=== PATIENT | female | born 1955 | race Caucasian/White ===

== ENCOUNTER → 2016-09-24 | Outpatient (CLI) | payer MEDICARE ==
--- NOTE | 2016-09-24 09:44 | MM ---
Reason for exam: clinical finding. Last mammogram was performed 1 year ago. History: Patient is postmenopausal. Family history of breast cancer in 2 maternal aunts. Left US Cyst Aspiration of the left breast, April 26, 2007. Took hormonal contraceptives for 12 years. Indicated problem(s): pain in both breasts. Physical Findings: Nurse did not find any significant physical abnormalities on exam. MG 3D Diag Mammo W/Cad KAYE Bilateral CC and MLO view(s) were taken. Prior study comparison: September 12, 2015, bilateral MG 3d screening mammo w/cad. July 07, 2013, bilateral MG screening mammo w CAD. There are scattered fibroglandular densities. There is no discrete abnormality. No significant new findings when compared with previous films. These results were verbally communicated with the patient and result sheet given to the patient on 09/24/16. ASSESSMENT: Negative, BI-RAD 1 RECOMMENDATION: Routine screening mammogram of both breasts in 1 year.
== END | disposition home or self-care (01) ==
LOC: RADMAMWWP 08:48
PROVIDERS: ATTEND Family Medicine
DX: N64.4 Mastodynia (principal)
CPT/HCPCS: G0204; G0279

== ENCOUNTER → 2016-10-01 | Outpatient (CLI) | payer MEDICARE ==
--- NOTE | 2016-10-01 09:40 | MR ---
EXAMINATION TYPE: MR lspine/sacrum wo/w con DATE OF EXAM: 10/01/2016 COMPARISON: NONE HISTORY: lumbago TECHNIQUE: Multiplanar, multisequence images of the lumbar spine is performed without and with IV contrast, util izing 9.5 mL intravenous Gadavist FINDINGS: At T12-L1 there is no disc herniation or canal stenosis. No foraminal encroachment. L1-L2 there is no disc herniation or canal stenosis. No foraminal encroachment. At L2-L3 there is no disc herniation or canal stenosis. There is hypertrophic change of the facets an d ligamentum flavum. Neural foramina patent. At L3-L4 there is broad-based central disc bulging and hypertrophic change of the facets and ligament um flavum with borderline canal stenosis. Neural foramina remain patent. At L4-L5 there is a grade 1 anterolisthesis with severe facet arthropathy. Results in moderate canal stenosis with pseudodisc posteriorly. There is moderate bilateral foraminal encroachment. There is a fluid signal adjacent to the facet joint posteriorly within the soft tissues measuring 1.4 cm suggest sylvia of a synovial cyst. There is severe facet arthropathy at L5-S1 with grade 1 anterolisthesis. Broad-based disc bulging is seen with borderline to mild canal stenosis. Moderate bilateral foraminal encroachment. SACRUM: SI joints are preserved with no evidence of erosive change. Bone marrow signal is maintained. Scalloping along the posterior margin of the S2 vertebral segment is likely related to dural ectasia . Incidental note of a probable uterine fibroid measuring approximately 1.7 cm. Nabothian cysts noted. IMPRESSION: 1. Multilevel degenerative disc disease and severe facet arthropathy with grade 1 anterolisthesis L4- L5 and L5-S1 with moderate bilateral foraminal encroachment at both levels. Canal stenosis at both le vels. 2. No evidence of sacroiliitis. 3. 1.7 cm uterine fibroid. 4. Broad-based disc bulging L3-L4 with moderate effacement of thecal sac and borderline to mild canal stenosis.
== END | disposition home or self-care (01) ==
LOC: RADMRIMAIN 07:51
PROVIDERS: ATTEND Nurse Practitioner Women's Health
DX: M48.07 Spinal stenosis, lumbosacral region (principal); M51.17 Intervertebral disc disorders with radiculopathy, lumbosacral region; M12.88 Other specific arthropathies, not elsewhere classified, other specified site; M43.17 Spondylolisthesis, lumbosacral region
CPT/HCPCS: 72158; 72197; A9581

== ENCOUNTER → 2016-10-11 | Outpatient (CLI) | payer MEDICARE ==
--- NOTE | 2016-10-11 09:18 | MR ---
EXAMINATION TYPE: MR thoracic spine wo/w con DATE OF EXAM: 10/11/2016 COMPARISON: CTA chest October 06, 2015. HISTORY: Pain in thoracic spine(M54.4 and M 54.6 per order). Back pain for over 4 years per patient. TECHNIQUE: Multiplanar, multisequence imaging of thoracic spine is performed without and with IV cont rast, patient is injected with 10 cc of Gadavist for this exam. FINDINGS: Spinal cord shows normal course, caliber, and signal as it courses the thoracic spine. Tramaine tebral body heights and alignment are satisfactory. Disc space heights are maintained. No large post erior disc herniations are seen on sagittal images. There is mild multilevel anterior spurring. There are small hemangioma at T6 vertebral body level on sagittal image 9. No abnormal postcontrast enhanc ement is seen. Review of the axial images shows no significant spinal canal stenosis or neural foraminal narrowing a t any thoracic level. No significant disc herniation is seen. No suspicious postcontrast enhancement is present. There is suspected 1.1 cm left adrenal nodule, nonspecific finding axial image 6 series 6 01. This left adrenal nodule is roughly stable from CT study one year earlier favored benign. IMPRESSION: No significant abnormality is seen to account for patient's symptoms.
== END ==
LOC: RADMRIMAIN 07:57
PROVIDERS: ATTEND Nurse Practitioner Women's Health
DX: M54.6 Pain in thoracic spine (principal)
CPT/HCPCS: 72157; A9581

== ENCOUNTER → 2018-11-25 | Outpatient (CLI) | payer MEDICARE ==
--- NOTE | 2018-11-25 12:43 | BD ---
EXAMINATION TYPE: Axial Bone Density DATE OF EXAM: 11/25/2018 COMPARISON: NONE CLINICAL HISTORY: 62 YR OLD FEMALE....ICD-10 CODE: Z78.0 POST MENOPAUSAL Height: 65 Weight: 207 FRAX RISK QUESTIONS: Current Tobacco Use: YES RISK FACTORS HISTORY OF: NO FXs IN BODY SINCE AGE OF 52, PRIOR, ONLY TOES AND "CHIPPED KNEECAP" Family History of Osteoporosis: NONE AWARE OF Postmenopausal woman: YES ABOUT AGE 50 TRAMATIC ONSET MENOPAUSE Hyperparathyroidism: NO Adrenal Insufficiency: NO MEDICATIONS: Additional Medications: BP MEDS, XANAX IN PAST FOR LONG TIME, REFLUX MED. SUPER MULTIVITAMIN Additional History: NOTHING ADDITIONAL TO ADD HERE EXAM MEASUREMENTS: Bone mineral densitometry was performed using the Fitzeal System. Bone mineral density as measured about the Lumbar spine is: ----- L1-L4(G/cm2): 1.387 T Score Values are as follows: ----- L1: 0.1 ----- L2: -0.1 ----- L3: 2.3 ----- L4: 4.5 ----- L1-L4: 1.7 Bone mineral density FIRST DEXA STUDY.....BASELINE STUDY Bone mineral density about the R hip (g/cm2): 1.044 Bone mineral density about the L hip (g/cm2): 0.989 T Score values are as follows: -----R Neck: -0.1 -----L Neck: -0.4 -----R Total: 0.3 -----L Total: -0.1 Bone mineral density FIRST DEXA SCAN......BASELINE STUDY FRAX%s: THERE IS A 6.0% CHANCE FOR A MAJOR OSTEOPOROTIC FX AND A 0.3% FOR HIP.....PROBABILITY FOR F X IN 10 YRS TIME IMPRESSION: Normal (Values between +1 and -1 indicate normal bone mass). Consider repeating this study in 5 year s or sooner if there is some new clinical indication. NOTE: T-SCORE=SD OF THE YOUNG ADULT MEAN.
--- NOTE | 2018-11-26 12:09 | MM ---
Reason for exam: screening (asymptomatic). Last mammogram was performed 2 years and 2 months ago. History: Patient is postmenopausal. Family history of breast cancer in 2 maternal aunts. Left US Cyst Aspiration of the left breast, April 26, 2007. Took hormonal contraceptives for 12 years. Physical Findings: A clinical breast exam by your physician is recommended on an annual basis and results should be correlated with mammographic findings. MG 3D Screening Mammo W/Cad Bilateral CC and MLO view(s) were taken. Prior study comparison: September 24, 2016, bilateral MG 3d diag mammo w/cad KAYE. September 12, 2015, bilateral MG 3d screening mammo w/cad. There are scattered fibroglandular densities. No suspicious abnormality. No significant changes when compared with prior studies. ASSESSMENT: Negative, BI-RAD 1 RECOMMENDATION: Routine screening mammogram of both breasts in 1 year.
== END | disposition home or self-care (01) ==
LOC: RADMAMWWP 10:51
PROVIDERS: ATTEND Family Medicine
DX: Z12.31 Encounter for screening mammogram for malignant neoplasm of breast (principal); Z78.0 Asymptomatic menopausal state
CPT/HCPCS: 77063; 77067; 77080

== ENCOUNTER 2021-03-29 08:53 | Day surgery (SDC) | payer MEDICARE ==
[2021-03-27 13:33] VITALS: BMI 33.0
--- NOTE | 2021-03-29 07:04 | P.GSHP ---
History of Present Illness H&P Date: 03/29/21 CHIEF COMPLAINT: Cholecystitis HISTORY OF PRESENT ILLNESS: The patient is a 65-year-old female who presents with history of epigastric including right upper quadrant abdominal pain for over 3 months. She underwent diagnostic studies for her gallbladder. Separately her clinical picture was consistent with cholecystitis. Now she presents for surgical intervention. PAST MEDICAL HISTORY: Please see list PAST SURGICAL HISTORY: Please see list MEDICATIONS: Please see list ALLERGIES: Please see list SOCIAL HISTORY: Please see list FAMILY HISTORY: Please see list REVIEW OF ORGAN SYSTEMS: CONSTITUTIONAL: No reports of fevers or chills. HEENT: Denies any troubles with the vision or hearing. ENDOCRINE: No reports of hypothyroidism. No diabetes. RESPIRATORY: No recent pneumonias. CARDIOVASCULAR: Denies chest pain or palpitations. Has hypertensive heart disease. GI: No blood in stools or constipation. MUSCULOSKELETAL: Has occasional joint pain including back pain. NEURO: No seizure disorders or headaches. No recent stroke. PSYCH: No depression or suicidal ideation. GENITOURINARY: No active blood in urine. No urinary hesitancy. HEMATOLOGIC: No personal or family history of DVTs or pulmonary emboli. SKIN: No skin cancer. PHYSICAL EXAM: VITAL SIGNS: Afebrile vital signs stable GENERAL: Well-developed pleasant in no acute distress. HEENT: No scleral icterus. Extraocular movements grossly intact. Moist buccal mucosa. NECK: Supple without lymphadenopathy. CHEST: Unlabored respirations. Equal bilateral excursions. CARDIOVASCULAR: Regular rate regular rhythm rhythm. Distal 2+ pulses. ABDOMEN: Soft, nondistended. Tender along the epigastrium and right upper quadrant. MUSCULOSKELETAL: No clubbing, cyanosis, or edema. NEURO: Cranial nerves II to XII within normal limits. No focal or lateralizing signs. PSYCH: Alert and oriented to person, place and time. SKIN: Well-perfused good skin turgor. ASSESSMENT: 1. Epigastric and right upper quadrant abdominal pain 2. Chronic cholecystitis 3. Symptomatic gallstones. 4. Hypertensive heart disease. PLAN: 1. Will need a robotic cholecystectomy possible open. Benefits and risks were described. 2. Heparin for DVT prophylaxis 5000 units. 3. Antibiotic prophylaxis. Past Medical History Past Medical History: Deep Vein Thrombosis (DVT), Hyperlipidemia, Hypertension Additional Past Medical History / Comment(s): Hx "several DVT's, have small blood vessels." "AV heart block, leaky heart valves/regurgitation, born with hole in heart". Neuropathy in legs and hands. History of Any Multi-Drug Resistant Organisms: None Reported Past Surgical History: Orthopedic Surgery, Tubal Ligation Additional Past Surgical History / Comment(s): Thrombectomy left leg, left foot surgery. Past Anesthesia/Blood Transfusion Reactions: Previous Problems w/ Anesthesia Additional Past Anesthesia/Blood Transfusion Reaction / Comment(s): "Started to wake up during surgery on leg and I pulled IV out". Past Psychological History: Anxiety Smoking Status: Current every day smoker Past Alcohol Use History: None Reported Additional Past Alcohol Use History / Comment(s): Has been smoking for 50 yrs, 1/2 ppd. Past Drug Use History: None Reported - Past Family History Father Family Medical History: Cancer Additional Family Medical History / Comment(s): Brain cancer. Son(s) Family Medical History: Deep Vein Thrombosis (DVT), Pulmonary Embolus Additional Family Medical History / Comment(s): at 19 yrs of age. Sister(s) Family Medical History: Deep Vein Thrombosis (DVT), Pulmonary Embolus Brother(s) Family Medical History: Deep Vein Thrombosis (DVT), Pulmonary Embolus Medications and Allergies Home Medications Medication Instructions Recorded Confirmed Type ALPRAZolam [Xanax] 0.25 mg PO ONCE 10/06/15 03/27/21 History Cholecalciferol [Vitamin D3] 2,000 unit PO DAILY 10/06/15 03/27/21 History Multivitamin/Iron/Folic Acid 1 each PO DAILY 10/06/15 03/27/21 History [Centrum Complete Multivit Tab] atenoloL 100 mg PO QAM 10/06/15 03/27/21 History hydrALAZINE HCL 50 mg PO QAM 03/27/21 03/27/21 History hydroCHLOROthiazide 25 mg PO QAM 03/27/21 03/27/21 History Allergies Allergy/AdvReac Type Severity Reaction Status Date / Time No Known Allergies Allergy Verified 03/27/21 13:13
[~2021-03-29 08:53] MED LIST: ACETAMINOPHEN TAB 500 MG TAB PO PRN; DEXAMETHASONE SOD PHOSPHATE 4 MG/ML 1 ML VIAL IV ONE; GABAPENTIN 300 MG CAP PO PRN; HEPARIN SODIUM,PORCINE/PF 5,000 UNIT/0.5 ML SYRINGE SQ PRN; HYDROmorphone 0.5 MG/0.5 ML SYRINGE IVP PRN; INDOCYANINE GREEN 25 MG VIAL IV PRN; LACTATED RINGERS 1,000 ML IV SCH; MELOXICAM 7.5 MG TAB PO SCH; MIDAZOLAM 2 MG/2 ML VIAL IV PRN; ONDANSETRON 4 MG/2 ML VIAL IVP ONE; SCOPOLAMINE 1.5MG/72HR PATCH TRANSDERM ONE; SCOPOLAMINE 1.5MG/72HR PATCH TRANSDERM PRN
[2021-03-29 10:10] LABS: Basophils # (A) 0.1 k/uL (0-0.2); Basophils % (A) 1 %; Eosinophils # (A) 0.3 k/uL (0-0.7); Eosinophils % (A) 3 %; HCT 41.8 % (34.0-46.0); HGB 14.3 gm/dL (11.4-16.0); Lymphocytes # (A) 2.9 k/uL (1.0-4.8); Lymphocytes % (A) 32 %; MCH 33.4 pg (25.0-35.0); MCHC 34.3 g/dL (31.0-37.0); MCV 97.4 fL (80.0-100.0); Monocytes # (A) 0.5 k/uL (0-1.0); Monocytes % (A) 6 %; Neutrophils # (A) 5.1 k/uL (1.3-7.7); Neutrophils % (A) 56 %; Platelet Count 269 k/uL (150-450); RBC 4.29 m/uL (3.80-5.40); RDW 11.6 % (11.5-15.5); WBC 9.2 k/uL (3.8-10.6)
[2021-03-29 10:28] LABS: ALT 18 U/L (4-34); AST 28 U/L (14-36); African American GFR (CKD) >90 (>60 ml/min/1.73 sqM); Albumin 3.4 g/dL (3.5-5.0); Alkaline Phosphatase 53 U/L (38-126); Anion Gap 4 mmol/L; Blood Urea Nitrogen 13 mg/dL (7-17); Calcium 8.9 mg/dL (8.4-10.2); Carbon Dioxide 28 mmol/L (22-30); Chloride 105 mmol/L (98-107); Glucose 100 mg/dL (74-99); Non-African American GFR(CKD) 85 (>60 ml/min/1.73 sqM); Potassium 3.4 mmol/L (3.5-5.1); Sodium 137 mmol/L (137-145); Total Protein 6.1 g/dL (6.3-8.2)
--- NOTE | 2021-03-29 10:30 | P.HPADDEND ---
H&P Addendum H&P Addendum Date: 03/29/21 Patient reports recent gallbladder attack was seen 2 days ago. We'll proceed with cholecystectomy due to cholecystitis.
[2021-03-29] MEDS ORDERED: GLYCOPYRROLATE 0.2 MG/ML 2 ML VIAL ONE (10:35)
[2021-03-29] MEDS ORDERED: LIDOCAINE 1% INJ 10MG/ML (20 ML MDV) ONE (10:35)
[2021-03-29] MEDS ORDERED: NEOSTIGMINE 1 MG/ML 10 ML VIAL ONE (10:35)
[2021-03-29] MEDS ORDERED: MIDAZOLAM 2 MG/2 ML VIAL ONE (10:35)
[2021-03-29] MEDS ORDERED: ROCURONIUM 10 MG/ML (5 ML VIAL) IV ONE (10:35)
[2021-03-29] MEDS ORDERED: HYDROmorphone (PF) 1 MG/ML ONE (10:35)
[2021-03-29] MEDS ORDERED: PROPOFOL 10 MG/ML 20 ML VIAL IV ONE (10:35)
[2021-03-29] MEDS ORDERED: fentaNYL (PF) 50 MCG/ML 2 ML AMP ONE (10:35)
[2021-03-29] MEDS ORDERED: ePHEDrine 50 MG/ML 1 ML VIAL ONE (10:35)
[2021-03-29] MEDS ORDERED: SUCCINYLCHOLINE CHLORIDE 100 MG/5 ML SYR IV ONE (10:35)
[2021-03-29] MEDS ORDERED: BUPIVACAIN-EPI 0.25%-1:200,000 30 ML VIAL SQ ONE (11:08)
[2021-03-29] MEDS ORDERED: LACTATED RINGERS 1,000 ML IV ONE (11:54)
[2021-03-29 12:58] VITALS: TEMP 97.7
[2021-03-29 13:05] VITALS: RESP 16
--- NOTE | 2021-03-29 13:08 | P.OP ---
Date of Procedure: 03/29/21 Description of Procedure: SURGEON: SYL VILLASEÑOR MD PREOPERATIVE DIAGNOSES: 1. Chronic cholecystitis 2. Symptomatic gallstones 3. Hypertensive heart disease 4. Obesity due to excess calories, BMI 30.2. 5. Anxiety disorder 6. Hyperlipidemia 7. Tobacco abuse disorder POSTOPERATIVE DIAGNOSES: 1. Chronic cholecystitis 2. Symptomatic gallstones 3. Hypertensive heart disease 4. Obesity due to excess calories, BMI 30.2. 5. Anxiety disorder 6. Hyperlipidemia 7. Tobacco abuse disorder 8. Severe peritoneal adhesions, right upper quadrant OPERATION: 1. Robotic-assisted da Shannon Xi laparoscopic lysis of adhesions over 1 hour 2. Robotic-assisted da Shannon Xi laparoscopic cholecystectomy, multiport with FIREFLY ESTIMATED BLOOD LOSS: 10 mL. SPECIMENS REMOVED: Gallbladder. COMPLICATIONS: None. OPERATIVE FINDINGS: 1. Severe gallbladder adhesions to liver and common bile duct 2. Dilated common bile duct per indocyanine green INDICATIONS: The patient is a 65-year-old female who presents with epigastric right upper quadrant pain, symptomatic gallstones. Surgical intervention with cholecystectomy was described. Robotic assisted laparoscopic approach was described. Benefits and risks of the procedure including but not limited to bleeding, infection, injury to the biliary tree was reviewed. Informed consent was obtained. DESCRIPTION OF PROCEDURE: Patient was brought to the operating room, placed in supine position. After general induction, the abdomen had been prepped and draped in standard sterile fashion. The robotic da Shannon XI system was primed. After a timeout protocol was performed, the patient had been prepped and draped in standard sterile fashion. The patient was injected with indocyanine green. A 5 mm 0 degrees laparoscopic trocar entry was performed along the left upper quadrant. The abdomen insufflated to 15 mmHg pressure which was tolerated well. Diagnostic laparoscopy demonstrated no injury to bowel viscera or mesentery. No evidence of fatty liver disease was identified however extremely scarred and contracted gallbladder was identified. Next, two 8 mm robotic ports were placed along the right upper abdomen. The camera 8-mm port was maintained along the epigastrium. Another 8 mm port was placed along the left upper abdominal wall after exchanging the 5 mm port. Please note that the ports were placed at least 10 to 15 cm away from the target anatomy of the gallbladder. The robot was docked along the left lateral abdomen. The patient was repositioned in reverse Trendelenburg position with the right side up. Using a grasper for arm 3, a grasper for arm 4, including hook cautery for arm 1, the robotic system was docked and primed as described. Instruments were interchanged by the medical assistant secretary including hook cautery, Bovie cautery and clip appliers. I had sat at the console. The gallbladder was reflected towards the dome of the liver. The cystic structures including the common bile duct were completely scarred together. The common bile that was dilated. The entire gallbladder was without contrast consistent with acute cholecystitis. Attention was brought to dome down technique for cholecystectomy. The liver was reflected towards the diaphragm and starting at the gallbladder fundus, hook cautery was used to find the avascular plane between the liver and the gallbladder. As the gallbladder was dissected from the hepatic fossa, hemostasis was checked. Next, indocyanine green was used to confirm the common bile duct. The cystic duct was short. The infundibulum was adherent to the posterior wall of the common bile duct. FIREFLY was used to identify the cystic structures. Duct of Luschka was identified and clipped and divided. Due to the dense adherence of the infundibulum to the common bile duct, division at the infundibulum was exposed using robotic stapler. At the left upper quadrant, the trocar was upsized to a 12 mm robotic trocar. A 45 mm blue staple load was entered and divided along the infundibulum without injury to the common bile duct. Hemostasis was checked and found to be adequate. The robot was undocked. I re-scrubbed into the case. A 10 mm Endo Catch bag was used to remove the gallbladder in total via the left upper quadrant incision. The specimen was removed from the abdominal cavity. 0 Vicryl and Krish Rodríguez was used to oversew the 12 mm trocar site. All pneumoperitoneum instruments were evacuated from the abdominal cavity. The incisions were cleansed using dilute hydrogen peroxide. The incisions were reapproximated using 4-0 Monocryl in an interrupted subcuticular fashion. Please note along the trocar sites, local anesthetic was placed as a field block prior to insertion of all instruments. Liquid glue was applied to the skin. At the end of the procedure needle, sponge, and instrument count had been verified correct by the surgical services manager. The patient was transferred to postanesthesia care unit in stable condition. Intraoperative films were shared with the patient's family. Plan - Discharge Summary New Discharge Prescriptions: New Simethicone [Gas-X] 125 mg PO AC-TID PRN #20 capsule PRN Reason: Pain Ibuprofen [Motrin] 600 mg PO Q8HR PRN #30 tab PRN Reason: Pain Acetaminophen Tab [Tylenol Tab] 1,000 mg PO Q6HR PRN #30 tablet PRN Reason: Pain Continue ALPRAZolam [Xanax] 0.25 mg PO ONCE Multivitamin/Iron/Folic Acid [Centrum Complete Multivit Tab] 1 each PO DAILY Cholecalciferol [Vitamin D3 (25 Mcg = 1000 Iu)] 2,000 unit PO DAILY atenoloL 100 mg PO QAM hydroCHLOROthiazide 25 mg PO QAM Aspirin 325 mg PO DAILY hydrALAZINE HCL 50 mg PO QAM Discharge Medication List ALPRAZolam [Xanax] 0.25 mg PO ONCE 10/06/15 [History] Cholecalciferol [Vitamin D3 (25 Mcg = 1000 Iu)] 2,000 unit PO DAILY 10/06/15 [History] Multivitamin/Iron/Folic Acid [Centrum Complete Multivit Tab] 1 each PO DAILY 10/06/15 [History] atenoloL 100 mg PO QAM 10/06/15 [History] hydrALAZINE HCL 50 mg PO QAM 03/27/21 [History] hydroCHLOROthiazide 25 mg PO QAM 03/27/21 [History] Acetaminophen Tab [Tylenol Tab] 1,000 mg PO Q6HR PRN #30 tablet 03/29/21 [Rx] Aspirin 325 mg PO DAILY 03/29/21 [History] Ibuprofen [Motrin] 600 mg PO Q8HR PRN #30 tab 03/29/21 [Rx] Simethicone [Gas-X] 125 mg PO AC-TID PRN #20 capsule 03/29/21 [Rx] Follow up Appointment(s)/Referral(s): Syl Villaseñor MD [STAFF PHYSICIAN] - 04/02/21 (Telehealth) Patient Instructions/Handouts: Low Fat Diet (DC), *[facility] - Laparoscopic Cholecystectomy Discharge Instructions, *[facility] - Managing Your Pain After Surgery Without Opioids Activity/Diet/Wound Care/Special Instructions: Recommend low-fat diet for the next 2 days. No lifting over 10 pounds in 2 weeks until April 12June shower. No bath tub soaks for two weeks until April 12 Diet as tolerated. Use Tylenol, simethicone and ibuprofen or Aleve scheduled for the next 24-48 hours for best pain relief. Use ice along incisions for today to prevent swelling. Discharge Disposition: HOME SELF-CARE
[2021-03-29 15:52] VITALS: BP 141/86; PULSE 54
== END 2021-03-29 15:55 | disposition home or self-care (01) ==
LOC: OR 08:53
PROVIDERS: ATTEND Surgery Plastic and Reconstructive Surgery
DX: K80.12 Calculus of gallbladder with acute and chronic cholecystitis without obstruction (principal); K66.0 Peritoneal adhesions (postprocedural) (postinfection); I11.9 Hypertensive heart disease without heart failure; E78.5 Hyperlipidemia, unspecified; Z86.718 Personal history of other venous thrombosis and embolism; I38 Endocarditis, valve unspecified; F41.9 Anxiety disorder, unspecified; G62.9 Polyneuropathy, unspecified; Z98.51 Tubal ligation status; Z98.890 Other specified postprocedural states; F17.210 Nicotine dependence, cigarettes, uncomplicated; Z80.8 Family history of malignant neoplasm of other organs or systems; Z82.49 Family history of ischemic heart disease and other diseases of the circulatory system; Z79.899 Other long term (current) drug therapy; E66.09 Other obesity due to excess calories; Z68.30 Body mass index [BMI] 30.0-30.9, adult
CPT/HCPCS: 88304; 80053; 85025; 47563; J2250; J1100; J2710; J0690; J2405; J2001; J3010; J1170; J0330; J2704; J1644

== ENCOUNTER → 2021-04-04 | Outpatient (CLI) | payer MEDICARE ==
[2021-04-04 10:16] LABS: Basophils # (A) 0.1 k/uL (0-0.2); Basophils % (A) 1 %; Eosinophils # (A) 0.5 k/uL (0-0.7); Eosinophils % (A) 4 %; HCT 45.7 % (34.0-46.0); HGB 15.4 gm/dL (11.4-16.0); Lymphocytes # (A) 3.3 k/uL (1.0-4.8); Lymphocytes % (A) 32 %; MCHC 33.7 g/dL (31.0-37.0); Mean Platelet Volume 6.7; Monocytes # (A) 0.7 k/uL (0-1.0); Monocytes % (A) 6 %; Neutrophils # (A) 5.5 k/uL (1.3-7.7); Neutrophils % (A) 53 %; Platelet Count 326 k/uL (150-450); RBC 4.66 m/uL (3.80-5.40); RDW 12.2 % (11.5-15.5); WBC 10.3 k/uL (3.8-10.6)
[2021-04-04 10:23] LABS: ALT 38 U/L (4-34); AST 35 U/L (14-36); African American GFR (CKD) >90 (>60 ml/min/1.73 sqM); Albumin 3.9 g/dL (3.5-5.0); Alkaline Phosphatase 60 U/L (38-126); Anion Gap 6 mmol/L; Blood Urea Nitrogen 20 mg/dL (7-17); Calcium 9.3 mg/dL (8.4-10.2); Carbon Dioxide 28 mmol/L (22-30); Chloride 101 mmol/L (98-107); Glucose 98 mg/dL (74-99); Non-African American GFR(CKD) 78 (>60 ml/min/1.73 sqM); Potassium 3.8 mmol/L (3.5-5.1); Sodium 135 mmol/L (137-145); Total Bilirubin 0.5 mg/dL (0.2-1.3); Total Protein 7.1 g/dL (6.3-8.2)
== END ==
LOC: LAB 09:08
PROVIDERS: ATTEND Surgery Plastic and Reconstructive Surgery
DX: K80.10 Calculus of gallbladder with chronic cholecystitis without obstruction (principal); F17.200 Nicotine dependence, unspecified, uncomplicated
CPT/HCPCS: 80053; 85025

== ENCOUNTER → 2022-01-27 | Outpatient (CLI) | payer MEDICARE ==
--- NOTE | 2022-01-28 07:08 | MM ---
Reason for Exam: Screening (asymptomatic). Last mammogram was performed 3 year(s) and 2 month(s) ago. Patient History: Menarche at age 11. First Full-Term at age 19. Postmenopausal. Patient used Hormonal Contraceptives for 12 years. 04/26/2007, Cyst Aspiration on the Left side. Maternal aunt had breast cancer, age 40. Maternal aunt had breast cancer, age 45. Risk Values: Magda 5 year model risk: 1.3%. NCI Lifetime model risk: 5.2%. Prior Study Comparison: 09/12/2015 Bilateral Screening Mammogram, [facility]. 09/24/2016 Bilateral Diagnostic Mammogram, [facility]. 11/25/2018 Bilateral Screening Mammogram, [facility]. Tissue Density: There are scattered fibroglandular densities. Findings: Analyzed By CAD. There is no suspicious group of microcalcifications or new suspicious mass in either breast. Benign oil cyst calcifications within the right breast. Overall Assessment: Benign, BI-RAD 2 Management: Screening Mammogram of both breasts in 1 year. A clinical breast exam by your physician is recommended on an annual basis and results should be correlated with mammographic findings. Electronically signed and approved by: Joshua Echevarria D.O.
== END | disposition home or self-care (01) ==
LOC: RADMAMWWP 16:44
PROVIDERS: ATTEND Family Medicine
DX: Z12.31 Encounter for screening mammogram for malignant neoplasm of breast (principal); Z78.0 Asymptomatic menopausal state; Z80.3 Family history of malignant neoplasm of breast
CPT/HCPCS: 77063; 77067

== ENCOUNTER 2022-05-09 16:25 | Emergency (ER) | payer MEDICARE ==
--- NOTE | 2022-05-09 17:23 | ED ---
General Adult HPI <RyanFernando Sofy - Last Filed: 05/09/22 22:00> - General Source: patient, EMS, RN notes reviewed, old records reviewed Mode of arrival: EMS Limitations: no limitations <Aftab Mathews - Last Filed: 05/10/22 08:41> - General Chief complaint: Chest Pain Stated complaint: chest pain Time Seen by Provider: 05/09/22 16:30 - History of Present Illness Initial comments: This is a 66-year-old female presents emergency Department very histrionic. Patient states she was driving her car about an hour half prior to arrival started having chest pain difficulty breathing a little bit of upper abdominal pain. Patient states she also got pain in her back was short of breath per patient states once they gave her aspirin and nitroglycerin the pain continued so they gave her fentanyl and since then she feels extremely weird and can't explain anything about the pain at this point in time. Patient has a history of pulmonary embolisms and DVTs but has not been on any blood thinners in [facility]. She denies any recent fever chills or cough or present headache patient denies numbness weakness. (Aftab Mathews) - Related Data Home Medications Medication Instructions Recorded Confirmed atenoloL 100 mg PO QAM 10/06/15 05/09/22 hydrALAZINE HCL 50 mg PO QAM 03/27/21 05/09/22 hydroCHLOROthiazide 25 mg PO QAM 03/27/21 05/09/22 Potassium Chloride [Klor-Con M20] 20 meq PO QAM 05/09/22 05/09/22 Allergies Allergy/AdvReac Type Severity Reaction Status Date / Time No Known Allergies Allergy Verified 05/09/22 17:26 Review of Systems ROS Other: All systems not noted in ROS Statement are negative. <Fernando Davis - Last Filed: 05/09/22 22:00> ROS Other: All systems not noted in ROS Statement are negative. <Aftab Mathews - Last Filed: 05/10/22 08:41> ROS Statement: Those systems with pertinent positive or pertinent negative responses have been documented in the HPI. Past Medical History Past Medical History: Deep Vein Thrombosis (DVT), Hypertension History of Any Multi-Drug Resistant Organisms: None Reported Past Surgical History: Cholecystectomy, Tubal Ligation Additional Past Surgical History / Comment(s): thrombectomy left leg multiple times, vein stripping, Past Psychological History: Anxiety Smoking Status: Current every day smoker Past Alcohol Use History: None Reported Past Drug Use History: None Reported <Aftab Mathews - Last Filed: 05/10/22 08:41> General Exam Limitations: no limitations <Aftab Mathews - Last Filed: 05/10/22 08:41> - General Exam Comments Initial Comments: GENERAL: Patient is well-developed and well-nourished. Patient is nontoxic and well- hydrated and is in mild distress. ENT: Neck is soft and supple. No significant lymphadenopathy is noted. Oropharynx is clear. Moist mucous membranes. Neck has full range of motion without eliciting any pain. EYES: The sclera were anicteric and conjunctiva were pink and moist. Extraocular movements were intact and pupils were equal round and reactive to light. Eyelids were unremarkable. PULMONARY: Unlabored respirations. Good breath sounds bilaterally. No audible rales rhonchi or wheezing was noted. CARDIOVASCULAR: There is a regular rate and rhythm without any murmurs gallops or rubs. ABDOMEN: Soft and nontender with normal bowel sounds. SKIN: Skin is clear with no lesions or rashes and otherwise unremarkable. NEUROLOGIC: Patient is alert and oriented x3. Cranial nerves II through XII are grossly intact. Motor and sensory are also intact. Normal speech, volume and content. Symmetrical smile. MUSCULOSKELETAL: Normal extremities with adequate strength and full range of motion. No lower extremity swelling or edema. No calf tenderness. LYMPHATICS: No significant lymphadenopathy is noted PSYCHIATRIC: Normal psychiatric evaluation. (Aftab Mathews) Course Vital Signs 05/09/22 05/09/22 05/09/22 16:30 16:36 18:33 Pulse Rate 54 L Pulse Rate [ 51 L Primary Clinician ] Respiratory 18 18 Rate Blood Pressure 101/36 O2 Sat by Pulse 94 L Oximetry 05/09/22 05/09/22 05/09/22 20:00 20:40 20:50 Pulse Rate 55 L 52 L 53 L Pulse Rate [ Primary Clinician ] Respiratory 25 H 26 H Rate Blood Pressure 124/46 102/48 103/61 O2 Sat by Pulse 93 L 94 L 94 L Oximetry 05/09/22 05/09/22 05/09/22 21:00 21:10 21:20 Pulse Rate 49 L 54 L 47 L Pulse Rate [ Primary Clinician ] Respiratory 18 26 H 17 Rate Blood Pressure 103/61 94/45 94/45 O2 Sat by Pulse 93 L 96 96 Oximetry 05/09/22 05/09/22 05/09/22 21:30 21:40 21:50 Pulse Rate 53 L 54 L 53 L Pulse Rate [ Primary Clinician ] Respiratory 17 13 25 H Rate Blood Pressure 94/45 127/63 127/63 O2 Sat by Pulse 96 97 90 L Oximetry 05/09/22 22:00 Pulse Rate 56 L Pulse Rate [ Primary Clinician ] Respiratory 15 Rate Blood Pressure 127/63 O2 Sat by Pulse Oximetry Medical Decision Making - Lab Data Result diagrams: 05/09/22 18:04 05/09/22 18:04 <Fernando Davis - Last Filed: 05/09/22 22:00> - Lab Data Result diagrams: 05/09/22 18:04 05/09/22 18:04 <Aftab Mathews - Last Filed: 05/10/22 08:41> - Medical Decision Making Ultimately the patient was accepted at [facility], Dr. Theodore, at [facility]. (Fernando Davis) EKG was interpreted by myself shows sinus bradycardia 52 bpm AK interval is 253 QRS is 92 QT interval 440 QTC is 427. Patient's EKG shows no ST segment elevation or depression. Was pt. sent in by a medical professional or institution (, PA, GAS DISTRIBUTION AND EMERGENCY CLERK, urgent care, hospital, or halfway...) When possible be specific @ -No Did you speak to anyone other than the patient for history (EMS, parent, family, police, friend...)? What history was obtained from this source @ -Daughter gave some of the history Did you review nursing and triage notes (agree or disagree)? Why? @ -I reviewed and agree with nursing and triage notes Were old charts reviewed (outside hosp., previous admission, EMS record, old EKG, old radiological studies, urgent care reports/EKG's, halfway records)? Report findings @ -No old charts were reviewed Differential Diagnosis (chest pain, altered mental status, abdominal pain women, abdominal pain men, vaginal bleeding, weakness, fever, dyspnea, syncope, headache, dizziness, GI bleed, back pain, seizure, CVA, palpatations, mental health, musculoskeletal)? @ -Differential Chest Pain: Stable Angina, Unstable Angina, STEMI, NSTEMI Aortic Dissection, Pneumothorax, Musculoskeletal, Esophageal Spasm GERD, Cholecystitis, Pancreatitis, Zoster, this is not meant to be an all-inclusive list. EKG interpreted by me (3pts min.). @ -As above X-rays interpreted by me (1pt min.). @ -Chest x-ray is interpreted by myself I see no acute abnormality. CT interpreted by me (1pt min.). @ -CT of the chest to rule out PE shows no pulmonary embolism but does show a dissection of the aorta from the aortic valve down to the diaphragm. No call was received from radiology U/S interpreted by me (1pt. min.). @ -None done What testing was considered but not performed or refused? (CT, X-rays, U/S, labs)? Why? @ -None What meds were considered but not given or refused? Why? @ -None Did you discuss the management of the patient with other professionals (cristobal juarez i.eKeanu Duran, PA, GAS DISTRIBUTION AND EMERGENCY CLERK, lab, RT, psych nurse, social welfare clerk, millinery blocker, teacher, police liaison officer, lead case manager)? Give summary @ -I spoke with the [facility] for transfer of this patient and I awaited a call back from [facility] Was smoking cessation discussed for >3mins.? @ -No Was critical care preformed (if so, how long)? @ -35 minutes Were there social determinants of health that impacted care today? How? (Homelessness, low income, unemployed, alcoholism, drug addiction, transportation, low edu. Level, literacy, decrease access to med. care, skilled nursing, rehab)? @ -No Was there de-escalation of care discussed even if they declined (Discuss DNR or withdrawal of care, Hospice)? DNR status @ -Patient stated she was a DO NOT RESUSCITATE she made this statement and front of her daughter and myself What co-morbidities impacted this encounter? (DM, HTN, Smoking, COPD, CAD, Cancer, CVA, ARF, Chemo, Hep., AIDS, mental health diagnosis, sleep apnea, morbid obesity)? @ -None Was patient admitted / discharged? Hospital course, mention meds given and route, prescriptions, significant lab abnormalities, going to OR and other pertinent info. @ -Patient was seen for chest pain epigastric abdominal pain. Patient was given fentanyl in route and she stated that it was difficult for her to give any history because the fentanyl was too strong. Patient was given potassium for low potassium IV as well as oral. Patient's d-dimer came back elevated and because of her prior history of pulmonary embolism and DVTs heparin was cons idered but is it was held until the CAT scan was done. CAT scan report was done no call was received from radiology and it showed a dissection from the aortic valve to the diaphragm. Undiagnosed new problem with uncertain prognosis? @ -No Drug Therapy requiring intensive monitoring for toxicity (Heparin, Nitro, Insulin, Cardizem)? @ -No Were any procedures done? @ -No Diagnosis/symptom? @ -Aortic dissection Acute, or Chronic, or Acute on Chronic? @ -Acute Uncomplicated (without systemic symptoms) or Complicated (systemic symptoms)? @ -Complicated Side effects of treatment? @ -No Exacerbation, Progression, or Severe Exacerbation? @ -No Poses a threat to life or bodily function? How? (Chest pain, [place], [place], pneumonia, PE, COPD, DKA, ARF, appy, cholecystitis, CVA, Diverticulitis, Homicidal, Suicidal, threat to staff... and all critical care pts) @ -Yes this could lead to complete end organ dysfunction due to lack of perfusion Daughter suggested going to [place] patient told me that either [facility] or [facility] were fine with her. (Aftab Mathews) - Lab Data Lab Results 05/09/22 05/09/22 05/09/22 Range/Units 18:04 18:04 18:04 WBC 12.3 H (3.8-10.6) k/uL RBC 3.88 (3.80-5.40) m/uL Hgb 13.1 (11.4-16.0) gm/dL Hct 37.9 (34.0-46.0) % MCV 97.6 (80.0-100.0) fL MCH 33.8 (25.0-35.0) pg MCHC 34.6 (31.0-37.0) g/dL RDW 11.6 (11.5-15.5) % Plt Count 177 (150-450) k/uL MPV 7.1 Neutrophils % 73 % Lymphocytes % 17 % Monocytes % 5 % Eosinophils % 1 % Basophils % 1 % Neutrophils # 9.0 H (1.3-7.7) k/uL Lymphocytes # 2.1 (1.0-4.8) k/uL Monocytes # 0.7 (0-1.0) k/uL Eosinophils # 0.1 (0-0.7) k/uL Basophils # 0.1 (0-0.2) k/uL PT 11.0 (9.0-12.0) sec INR 1.1 (<1.2) APTT 22.4 (22.0-30.0) sec D-Dimer >34.00 H (<0.60) mg/L FEU Sodium 136 L (137-145) mmol/L Potassium 2.9 L (3.5-5.1) mmol/L Chloride 103 (98-107) mmol/L Carbon Dioxide 22 (22-30) mmol/L Anion Gap 11 mmol/L BUN 23 H (7-17) mg/dL Creatinine 1.02 (0.52-1.04) mg/dL Est GFR (CKD-EPI)AfAm 68 (>60 ml/min/1.73 sqM) Est GFR (CKD-EPI)NonAf 59 (>60 ml/min/1.73 sqM) Glucose 108 H (74-99) mg/dL Calcium 8.4 (8.4-10.2) mg/dL Magnesium 1.6 (1.6-2.3) mg/dL Total Bilirubin 0.5 (0.2-1.3) mg/dL AST 30 (14-36) U/L ALT 23 (4-34) U/L Alkaline Phosphatase 51 (38-126) U/L Troponin I (0.000-0.034) ng/mL NT-Pro-B Natriuret Pep pg/mL Total Protein 5.9 L (6.3-8.2) g/dL Albumin 3.5 (3.5-5.0) g/dL Lipase 116 (23-300) U/L 05/09/22 05/09/22 Range/Units 18:04 18:04 WBC (3.8-10.6) k/uL RBC (3.80-5.40) m/uL Hgb (11.4-16.0) gm/dL Hct (34.0-46.0) % MCV (80.0-100.0) fL MCH (25.0-35.0) pg MCHC (31.0-37.0) g/dL RDW (11.5-15.5) % Plt Count (150-450) k/uL MPV Neutrophils % % Lymphocytes % % Monocytes % % Eosinophils % % Basophils % % Neutrophils # (1.3-7.7) k/uL Lymphocytes # (1.0-4.8) k/uL Monocytes # (0-1.0) k/uL Eosinophils # (0-0.7) k/uL Basophils # (0-0.2) k/uL PT (9.0-12.0) sec INR (<1.2) APTT (22.0-30.0) sec D-Dimer (<0.60) mg/L FEU Sodium (137-145) mmol/L Potassium (3.5-5.1) mmol/L Chloride (98-107) mmol/L Carbon Dioxide (22-30) mmol/L Anion Gap mmol/L BUN (7-17) mg/dL Creatinine (0.52-1.04) mg/dL Est GFR (CKD-EPI)AfAm (>60 ml/min/1.73 sqM) Est GFR (CKD-EPI)NonAf (>60 ml/min/1.73 sqM) Glucose (74-99) mg/dL Calcium (8.4-10.2) mg/dL Magnesium (1.6-2.3) mg/dL Total Bilirubin (0.2-1.3) mg/dL AST (14-36) U/L ALT (4-34) U/L Alkaline Phosphatase (38-126) U/L Troponin I <0.012 (0.000-0.034) ng/mL NT-Pro-B Natriuret Pep 194 pg/mL Total Protein (6.3-8.2) g/dL Albumin (3.5-5.0) g/dL Lipase (23-300) U/L Critical Care Time Critical Care Time: Yes Total Critical Care Time: 35 <Aftab Mathews - Last Filed: 05/10/22 08:41> Disposition <Fernando Davis - Last Filed: 05/09/22 22:00> Time of Disposition: 20:14 - Out of Hospital Transfer - Req. Specs Out of Hospital Transfer - Requested Specifics: Other Emergency Center ([facility]) <Aftab Mathews - Last Filed: 05/10/22 08:41> Clinical Impression: Aortic dissection, Hypokalemia Disposition: OTHER INSTITUTION NOT DEFINED Referrals: Ramana Avila MD [Primary Care Provider] - 1-2 days
[2022-05-09 18:12] LABS: Basophils # (A) 0.1 k/uL (0-0.2); Basophils % (A) 1 %; Eosinophils # (A) 0.1 k/uL (0-0.7); Eosinophils % (A) 1 %; HCT 37.9 % (34.0-46.0); HGB 13.1 gm/dL (11.4-16.0); Lymphocytes # (A) 2.1 k/uL (1.0-4.8); Lymphocytes % (A) 17 %; MCH 33.8 pg (25.0-35.0); MCHC 34.6 g/dL (31.0-37.0); MCV 97.6 fL (80.0-100.0); Mean Platelet Volume 7.1; Monocytes # (A) 0.7 k/uL (0-1.0); Monocytes % (A) 5 %; Neutrophils % (A) 73 %; Platelet Count 177 k/uL (150-450); RBC 3.88 m/uL (3.80-5.40); RDW 11.6 % (11.5-15.5); WBC 12.3 k/uL (3.8-10.6)
--- NOTE | 2022-05-09 18:19 | XR ---
EXAMINATION TYPE: XR chest 2V DATE OF EXAM: 05/09/2022 COMPARISON: NONE HISTORY: Chest pain TECHNIQUE: 2 view FINDINGS: Heart is normal. Lungs are clear of infiltrate. No heart failure. There are chest leads. Th ere are no hilar masses IMPRESSION: No active cardiopulmonary disease. Normal heart.
[2022-05-09] MEDS ORDERED: NALOXONE 0.4 MG/ML 1 ML VIAL IVP STA ×2 (18:22→18:25)
[2022-05-09 18:23] LABS: Albumin 3.5 g/dL (3.5-5.0); Calcium 8.4 mg/dL (8.4-10.2); Magnesium 1.6 mg/dL (1.6-2.3); Potassium 2.9 mmol/L (3.5-5.1); Total Bilirubin 0.5 mg/dL (0.2-1.3); Total Protein 5.9 g/dL (6.3-8.2)
[2022-05-09 18:39] LABS: INR 1.1 (<1.2); Partial Thromboplastin Time 22.4 sec (22.0-30.0)
[2022-05-09] MEDS ORDERED: POTASSIUM CHLORIDE 20 MEQ in WATER FOR INJECTION 1 100ML.BAG IVPB STA (18:39)
[2022-05-09] MEDS ORDERED: POTASSIUM CHLORIDE ER 20 MEQ TAB.ER PO STA (18:39)
--- NOTE | 2022-05-09 19:44 | CT ---
EXAMINATION TYPE: CT chest angio for PE DATE OF EXAM: 05/09/2022 COMPARISON: None HISTORY: R/O PE Chest pain CT DLP: 408.1 mGycm Automated exposure control for dose reduction was used. CONTRAST: Performed with IV Contrast, patient injected with 100cc mL of Isovue 370. Images obtained from the thoracic inlet through the diaphragm with the IV contrast. There are Three-D postprocessed images. There is mild pulmonary emphysema. No mediastinal adenopathy. There is differential enhancement in th e thoracic aorta consistent with thrombus and dissection. There is normal contrast opacification of t he pulmonary arteries. No filling defect. Ascending aorta measures up to 4.5 cm. Heart size is normal . No pericardial effusion. No pleural effusion. Heart size is normal. The thoracic spine is intact thoracic spine is intact. Saurav rnum is intact. IMPRESSION: No evidence of pulmonary embolism. Dissecting thoracic aortic aneurysm extends from the aortic valve to the diaphragm. No evidence of di ssection in the upper abdomen. Dissection appears new compared to old exam.
[2022-05-09] MEDS ORDERED: LORazepam 2 MG/ML INJ IV STA (19:57)
[2022-05-09] MEDS ORDERED: SODIUM CHLORIDE 0.9% 500 ML 500 ML IV ONE (20:19)
[2022-05-09 22:06] VITALS: BP 127/63; PULSE 56; RESP 15
== END 2022-05-09 22:44 | disposition other institution (70) ==
LOC: EC 16:25
DX: I71.00 Dissection of unspecified site of aorta (principal); E87.6 Hypokalemia; I10 Essential (primary) hypertension; F17.200 Nicotine dependence, unspecified, uncomplicated; Z90.49 Acquired absence of other specified parts of digestive tract; Z98.51 Tubal ligation status
CPT/HCPCS: 36415; 93005; 85379; 83880; 80053; 83690; 83735; 84484; 85025; 85610; 85730; 71046; 71275; 99291; 96365; 96375; J2060; J2310; J3480; Q9967

== ENCOUNTER → 2023-05-01 | Outpatient (CLI) | payer MEDICARE ==
--- NOTE | 2023-05-06 05:45 | HM ---
HOLTER MONITOR REPORT Patient was monitored for 24 hours. CLINICAL INFORMATION: Baseline rhythm is sinus mechanism. The average rate 75 beats per minute, minimum 62, maximum 102 beats per minute. Ventricular ectopic activity was present in form of rare single PVCs. Supraventricular ectopic activity was present in form of rare single PACs. No diary was available. CONCLUSION: 1. Sinus mechanism baseline rhythm. 2. Rare ventricular ectopic activity. 3. Rare supraventricular ectopic activity. 4. No diary was available. MMODL / IJN: [id number] /
== END | disposition home or self-care (01) ==
LOC: RADECHMAIN 12:41
PROVIDERS: ATTEND Family Medicine
DX: I49.8 Other specified cardiac arrhythmias (principal); I49.3 Ventricular premature depolarization; R55 Syncope and collapse
CPT/HCPCS: 93225; 93226

== ENCOUNTER → 2024-02-22 | Outpatient (CLI) | payer MEDICARE ==
[2024-02-22 12:33] LABS: African American GFR (CKD) 73 (>60 ml/min/1.73 sqM); Blood Urea Nitrogen 28 mg/dL (7-17); Non-African American GFR(CKD) 64 (>60 ml/min/1.73 sqM)
--- NOTE | 2024-02-22 14:13 | CT ---
EXAMINATION TYPE: CT abdomen pelvis w con CT DLP: 1198.7 mGycm, Automated exposure control for dose reduction was used. DATE OF EXAM: 02/22/2024 1:42 PM COMPARISON: CTA chest 04/29/2022, 10/06/2015 CLINICAL INDICATION:Female, 68 years old with history of R31.9 HEMATURIA; hematuria TECHNIQUE: Standard CT of the abdomen and pelvis following the administration of 100 cc of Isovue 3 00 IV contrast material and oral contrast. Coronal and sagittal reformats were performed. FINDINGS: LOWER CHEST: Stable left lower lobe 5 mm pulmonary nodule dating back to 2015 considered benign. Lung bases are otherwise clear. ABDOMEN LIVER: Unremarkable GALLBLADDER AND BILE DUCTS: Unremarkable. PANCREAS: Unremarkable. SPLEEN: Unremarkable. ADRENAL GLANDS: Right adrenal gland is unremarkable. Stable left adrenal gland nodularity dating back to 2015 and considered benign due to stability. Probable adenoma. KIDNEYS AND URETERS: No evidence of hydronephrosis or renal calculus. The kidneys enhance symmetrical ly. Contrast is demonstrated within both collecting systems on the delayed phase. Tiny subcentimeter left upper pole renal cortical cyst. No ureteral calculus. PELVIS BLADDER: Incompletely distended but grossly unremarkable. REPRODUCTIVE: Unremarkable. ABDOMEN & PELVIS STOMACH AND BOWEL: Stomach and duodenum are unremarkable. Enteric contrast reaches the ascending colo n. The appendix is within normal limits. No focal bowel wall thickening or surrounding inflammatory c hanges. No evidence of bowel obstruction. PERITONEUM: No evidence of pneumoperitoneum or free fluid. VASCULATURE: Moderate atherosclerotic calcifications are present throughout the abdominal aorta and i ts branches. No evidence of aortic aneurysm. Fusiform infrarenal abdominal aortic ectasia measuring u p to 2.9 cm. Previously seen dissection of the visualized descending thoracic aorta is no longer pres ent. MUSCULOSKELETAL: No acute osseous abnormalities. Grade 1 anterolisthesis of L4 on L5 and L5 on S1. Ri ght L5 pars defect. The lower facet arthropathy lower lumbar spine. Mild multilevel degenerative disc disease. LYMPH NODES: No evidence for lymphadenopathy. SOFT TISSUE/ABDOMINAL WALL: Unremarkable IMPRESSION: 1. No acute abdominopelvic process. No evidence for obstructive uropathy. 2. Infrarenal abdominal aortic ectasia measuring up to 2.9 cm. 3. Grade 1 anterolisthesis of L4 on L5 and L5 on S1 with a right L5 pars defect. [facility], , 02/22/2024 2:10 PM
== END | disposition home or self-care (01) ==
LOC: RADCTMAIN 11:53
PROVIDERS: ATTEND Family Medicine
DX: R31.9 Hematuria, unspecified (principal); I77.811 Abdominal aortic ectasia; M43.17 Spondylolisthesis, lumbosacral region
CPT/HCPCS: 82565; 84520; 74177; 36415; Q9967

== ENCOUNTER → 2024-06-06 | Outpatient (CLI) | payer MEDICARE ==
[2024-06-06 09:58] LABS: African American GFR (CKD) 89 (>60 ml/min/1.73 sqM); Blood Urea Nitrogen 23 mg/dL (7-17); Non-African American GFR(CKD) 77 (>60 ml/min/1.73 sqM)
--- NOTE | 2024-06-06 14:11 | CT ---
EXAMINATION TYPE: CT chest without contrast CT angio chest DATE OF EXAM: 06/06/2024 11:52 AM COMPARISON: 05/09/2022 . CLINICAL INDICATION: Female, 68 years old with history of I71.20 THORACIC AORTIC ANEURYSM; Thoracic a ortic aneurysm, pt states hx of dissection and aortic repair TECHNIQUE/CONTRAST: Initial noncontrast CT of the chest with coronal and sagittal reconstructions. Subsequent CTA scan of the thorax is performed with IV Contrast, patient injected with 100 ML mL of Isovue 370. Postcontras t delayed scan is also included. 3-D reconstructions are created and reviewed these are created on a separate workstation. CT DLP: 883 mGycm, Automated exposure control for dose reduction was used. FINDINGS: Heart is normal size without pericardial effusion. There are median sternotomy wires present. Three-v essel coronary artery calcifications are present. Evidence of interposition graft repair of the ascending aorta. Aortic root and borderline aneurysmal 4.0 cm improved from 4.1 cm, previously. No residual dissection is seen. No abnormal Fluid collection or leak is identified Bovine configuration to the aortic arch. Ectatic upper descend ing thoracic aorta 3.1 cm improved from 3.3 cm, previously. Large caliber main right and the pulmonary arteries measuring up to 3.0 cm suggesting underlying pulm onary artery hypertension Some strandy web within the right lower lobar arterial branch, axial image 70 and 81 series 8 was pre sent in retrospect. No new filling defect is identified. No thoracic lymphadenopathy. Lungs show moderate emphysematous change. Mild diffuse bronchial wall thickening. No consolidation or pleural effusion. Unchanged nodular thickening left adrenal gland measuring 2.5 x 1.1 cm. Mild aneurysm mid abdominal aorta infrarenal portion up to 3.1 cm increased from 2.9 cm, previously. Incidental extrarenal pelvis on both sides. Small hiatal hernia and cholecystectomy clips. Bones: Mild to moderate degenerative disc disease lower thoracic spine. IMPRESSION: 1. Interval placement of ascending aortic aortic interposition graft for correction of previous disse ction. Borderline aneurysmal aortic root at 4.0 cm, improved from 4.1 cm, previously. Ectatic upper d escending thoracic aorta 3.1 cm also improved from 3.3 cm, previously. No residual dissection is seen . 2. Note some chronic thromboembolic material/web in the right lower lobar pulmonary artery branch. Pr esent on 05/09/2022 in retrospect. No acute PE is identified. 3. COPD with [id number] emphysema and pulmonary artery hypertension. 4. Incidental infrarenal AAA at 3.1 cm, increased from 2.9 mm, previously. 5. Small hiatal hernia. [facility], Workstation: [facility], 06/06/2024 2:09 PM
== END | disposition home or self-care (01) ==
LOC: RADCTMAIN 09:09
PROVIDERS: ATTEND Internal Medicine Interventional Cardiology
DX: K44.9 Diaphragmatic hernia without obstruction or gangrene (principal); J44.9 Chronic obstructive pulmonary disease, unspecified; I77.810 Thoracic aortic ectasia; I27.21 Secondary pulmonary arterial hypertension; J43.9 Emphysema, unspecified; Z86.79 Personal history of other diseases of the circulatory system
CPT/HCPCS: 82565; 84520; 71275; 36415; Q9967

== ENCOUNTER → 2024-06-06 | Outpatient (CLI) | payer MEDICARE ==
--- NOTE | 2024-06-07 11:48 | MM ---
Reason for Exam: Screening (asymptomatic). Last mammogram was performed 2 year(s) and 4 month(s) ago. Patient History: Menarche at age 11. First Full-Term at age 19. Postmenopausal. Patient used Hormonal Contraceptives for 12 years. 04/26/2007, Cyst Aspiration on the Left side. Maternal aunt had breast cancer, age 40. Maternal aunt had breast cancer, age 45. Risk Values: Magda 5 year model risk: 1.3%. NCI Lifetime model risk: 4.8%. Prior Study Comparison: 09/12/2015 Bilateral Screening Mammogram, [facility]. 09/24/2016 Bilateral Diagnostic Mammogram, [facility]. 11/25/2018 Bilateral Screening Mammogram, [facility]. 01/27/2022 Bilateral MG 3D screening mammo w/cad, [facility]. Tissue Density: There are scattered areas of fibroglandular density. Findings: Analyzed By CAD. There are benign-appearing bilateral axillary lymph nodes that are redemonstrated. There is no suspicious group of microcalcifications or new suspicious mass in either breast. Overall Assessment: Negative, BI-RAD 1 Management: Screening Mammogram of both breasts in 1 year. . Patient should continue monthly self-breast exams. A clinical breast exam by your physician is recommended on an annual basis. This exam should not preclude additional follow-up of suspicious palpable abnormalities. Note on Magda scores and lifetime risk: 1. A Magda score greater than 3% is considered moderate risk. If this is the case, consider specialist referral to assess eligibility for a risk reducing agent. 2. If overall lifetime risk for the development of breast cancer is 20% or higher, the patient may qualify for future screening with alternating mammogram and breast MRI. [facility], , 06/07/2024 11:45 AM. Electronically signed and approved by: Jcarlos Luque M.D.
== END | disposition home or self-care (01) ==
LOC: RADMAMWWP 08:49
PROVIDERS: ATTEND Family Medicine
DX: Z12.31 Encounter for screening mammogram for malignant neoplasm of breast (principal); R92.323 Mammographic fibroglandular density, bilateral breasts; Z78.0 Asymptomatic menopausal state; Z80.3 Family history of malignant neoplasm of breast; Z92.0 Personal history of contraception
CPT/HCPCS: 77063; 77067